=== PATIENT | female | born 1950 | race Asian ===

== ENCOUNTER 2017-07-18 12:55 | Emergency (ER) | payer OTHER ==
[2017-07-18 12:59] VITALS: BP 155/80; PULSE 90; TEMP 97.7; BMI 22.4
--- NOTE | 2017-07-18 16:09 | PDOC ---
Attending Attestation - Resident Resident Name: Paddy Mendez - ED Attending Attestation I have performed the following: I have examined & evaluated the patient, The case was reviewed & discussed with the resident, I agree w/resident's findings & plan, Exceptions are as noted - Medical Decision Making 07/18/17 16:09 I, Dr. Janki Sims, DO, attest that this document has been prepared under my direction and personally reviewed by me in its entirety. I further attest, that it accurately reflects all work, treatment, procedures and medical decision -making performed by me. 07/18/17 18:36 a/p: 67yo female with mechanical fall yesterday and hand lac -will need suturing -wash out wound -no signs of infection -deep wound -no tendon involvement -FROM of digits -will update tetanus, will give abx -will suture <Janki Sims - Last Filed: 07/18/17 18:36> - HPI HPI: 07/18/17 18:43 The patient is a 67 year old female, with a significant past medical history of diabetes(insulin-dependent) and hypertension, who presents to the emergency department with a laceration to the left hand s/p mechanical fall last night. Patient reports she slipped on a wet floor in her kitchen last night, and hit her hand on the edge of her oven. Patients fall was unwitnessed, but she denies any loss of consciousness, headache, changes in vision, neck or back pain. She reports decreased strength in her left hand secondary to pain. She denies any chest pain, shortness of breath, diaphoresis, or palpitations. Patient is not on any blood thinners. Patient reports calling her PCP, Dr. Barajas, who recommended the patient come to the ED for suturing. Allergies: NKDA PCP: Dr. Barajas - Physicial Exam PE: 07/18/17 18:43 Constitutional: Awake, alert, oriented. No acute distress. Head: Normocephalic. Atraumatic Eyes: PERRL. EOMI. Conjunctivae are not pale. ENT: Mucous membranes are moist and intact. Posterior pharynx without exudates or erythema. Uvula midline. Neck: Supple. Full ROM. No lymphadenopathy. Cardiovascular: Regular rate. Regular rhythm. S1, S2 regular. Distal pulses are 2+ and symmetric. Pulmonary/Chest: No evidence of respiratory distress. Clear to auscultation bilaterally No wheezing, rales or rhonchi. Abdominal: Soft and non-distended. There is no tenderness. No rebound, guarding or rigidity. No organomegaly. No palpable masses. Good bowel sounds. Back: No CVA tenderness. Musculoskeletal: No edema. No cyanosis. No clubbing. Full range of motion in all extremities. No calf tenderness. Radial/pedal pulses are intact and 2+ bilaterally. Pelvis is stable. Skin: Skin is warm and dry. No petechiae. No purpura. Left Hand: Jagged laceration over the 3rd metacarpal. Linear laceration over the first metacarpal. No active bleeding. Sensation intact to all digits. Neurological: Alert and oriented to person, place, and time. Cranial nerves II -XII are grossly intact. Normal speech. Strength is grossly symmetric. No sensory deficits. Psychiatric: Good eye contact. Normal interaction, affect and behavior. - Medical Decision Making 07/18/17 18:43 Documentation prepared by Richard Nevarez, acting as medical equipment sales for Janki Sims DO. EXAM: RAD/WRIST W/HAND-LEFT INTERPRETED BY: Dr. Oh REVIEWED BY: Dr. Mejia IMPRESSION: No fracture is seen. Follow-up imaging as clinically indicated. <Richard Nevarez - Last Filed: 07/18/17 23:17>
--- NOTE | 2017-07-18 16:26 | PDOC ---
History of Present Illness - General Chief Complaint: Injury Stated Complaint: FALL (PCP SENT) Time Seen by Provider: 07/18/17 16:04 History Source: Patient - History of Present Illness Initial Comments: 07/18/17 16:21 Patient is a 67F with history of IDDM and HTN here today complaining of a laceration and pain to the left hand after falling last night. The fall was witnessed by the patient's family. She slipped on a wet floor in the kitchen and hit her hand on the edge of the oven. Patient denies hitting her head, abdominal pain, headache, neck pain and loss of consciousness. 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 Denies any prodromal symptoms before the fall, including dizziness, shortness of breath, and chest pain. Denies being on blood thinners. Past History - Past Medical History Allergies/Adverse Reactions: Allergies Allergy/AdvReac Type Severity Reaction Status Date / Time No Known Allergies Allergy Verified 07/18/17 12:59 Home Medications: Ambulatory Orders Cephalexin Monohydrate [Keflex -] 500 mg PO Q6H #28 capsule 07/18/17 COPD: No Diabetes: Yes - Suicide/Smoking/Psychosocial Hx Smoking History: Never smoked Hx Alcohol Use: No Drug/Substance Use Hx: No Substance Use Type: None Review of Systems - Review of Systems Comments:: 07/18/17 16:26 GENERAL/CONSTITUTIONAL: No fever or chills. No weakness. HEAD, EYES, EARS, NOSE AND THROAT: No change in vision. No sore throat. CARDIOVASCULAR: No chest pain or shortness of breath RESPIRATORY: No cough, wheezing, or hemoptysis. GASTROINTESTINAL: No nausea, vomiting, diarrhea or constipation. GENITOURINARY: No dysuria, frequency, or change in urination. MUSCULOSKELETAL: Positive for pain in left hand No neck or back pain. NEUROLOGIC: No headache, vertigo, loss of consciousness, or change in strength/ sensation. ENDOCRINE: No increased thirst. No abnormal weight change HEMATOLOGIC/LYMPHATIC: No anemia, easy bleeding, or history of blood clots. ALLERGIC/IMMUNOLOGIC: No hives or skin allergy. *Physical Exam - Vital Signs Last Vital Signs Temp Pulse Resp BP Pulse Ox 97.7 F 90 20 155/80 100 07/18/17 12:56 07/18/17 12:56 07/18/17 12:56 07/18/17 12:56 07/18/17 12:56 - Physical Exam Comments: 07/18/17 16:29 GENERAL: Awake, alert, and fully oriented, in no acute distress LEFT HAND: Sensation intact in all digits, normal cap refill, limited flexion in fingers secondary to pain in dorsal mid-hand. Extension normal. No snuffbox tenderness. No tenderness in any digit. Tender to palpation in mid hand over 3rd digit. 5cm irregular laceration over middle of dorsum of hand with additional 1-2cm laceration over thenar aspect of dorsum. HEAD: No signs of trauma, normocephalic, atraumatic EYES: PERRLA, EOMI, sclera anicteric, conjunctiva clear NECK: Normal ROM, supple, no lymphadenopathy, JVD, or masses, nontender midline. LUNGS: No distress, speaks full sentences, clear to auscultation bilaterally HEART: Regular rate and rhythm, normal S1 and S2, no murmurs, rubs or gallops, peripheral pulses normal and equal bilaterally. ABDOMEN: Soft, nontender, normoactive bowel sounds. No guarding, no rebound. No masses EXTREMITIES: Normal inspection, Normal range of motion, no edema. No clubbing or cyanosis. NEUROLOGICAL: Cranial nerves II through XII grossly intact. Normal speech, no focal sensorimotor deficits SKIN: Warm, Dry, normal turgor, no rashes or lesions noted. Procedures - Laceration/Wound Repair Left Dorsal Hand Wound Length: 2.6 to 5.0 cm Wound Explored: clean Wound's Depth, Shape: irregular Irrigated w/ Saline: Yes Anesthesia: 1% Lidocaine Amount of Anesthetic (ccs): 5 Wound Repaired With: Sutures Suture Size/Type: 5:0 Number of Sutures: 8 Layer Closure: No Sterile Dressing Applied: Yes Splint Applied: No ED Treatment Course - RADIOLOGY Radiology Studies Ordered: Category Date Time Status WRIST W/HAND-LEFT* [RAD] Stat Radiology 07/18/17 16:15 Ordered Medical Decision Making - Medical Decision Making 07/18/17 23:55 67F here today with hand laceration after a witnessed mechanical fall. Vital signs stable and normal. No signs of trauma. Will suture wound after hand x-ray. Hand x-ray normal. Sutures placed. Discharged with return precautions, pcp and plastics follow up. *DC/Admit/Observation/Transfer Diagnosis at time of Disposition: Laceration - Discharge Dispostion Disposition: HOME Condition at time of disposition: Good Admit: No - Prescriptions Prescriptions: Cephalexin Monohydrate [Keflex -] 500 mg PO Q6H #28 capsule - Referrals Referrals: Jose Barajas MD [Primary Care Provider] - Carlitos Hernandez MD [Staff Physician] - - Patient Instructions Printed Discharge Instructions: DI for Laceration Repair Additional Instructions: Please return in 7 days to have your sutures removed. Please return if you have any new, worsening or concerning symptoms, especially fever, chills, spreading redness and discharge. Please schedule follow up with your primary care physician and plastic surgery for next week. - Post Discharge Activity
[2017-07-18] MEDS ORDERED: DIPHTH,PERTUSS(ACELL),TET 0.5 ML DISP.SYRIN IM ONE (17:48)
[2017-07-18] MEDS ORDERED: CEPHALEXIN MONOHYDRATE 500 MG CAPSULE (UD) PO ONE (18:35)
[2017-07-18] MEDS ORDERED: CEPHALEXIN MONOHYDRATE 250 MG CAPSULE (FP) ONE (19:20)
== END 2017-07-18 19:27 | disposition home or self-care (01) ==
LOC: JER 12:55
PROC: 0JQK0ZZ Repair Left Hand Subcutaneous Tissue and Fascia, Open Approach (ICD-10-PCS; principal; 2017-07-18)
PROC: 3E0234Z Introduction of Serum, Toxoid and Vaccine into Muscle, Percutaneous Approach (ICD-10-PCS; 2017-07-18)
DX: S61.412A Laceration without foreign body of left hand, initial encounter (principal); W01.198A Fall on same level from slipping, tripping and stumbling with subsequent striking against other object, initial encounter; Y93.89 Activity, other specified; Y92.010 Kitchen of single-family (private) house as the place of occurrence of the external cause; Y99.8 Other external cause status; E10.9 Type 1 diabetes mellitus without complications; Z79.4 Long term (current) use of insulin; I10 Essential (primary) hypertension
CPT/HCPCS: 73110-TC-LT; 73130-TC-LT; 90715; 99282-25